=== PATIENT | male | born 1975 | race Caucasian/White ===

== ENCOUNTER 2016-08-02 16:24 | Emergency (ER) | payer MEDICAID, OTHER ==
[~2016-08-02] VITALS: Ht 175.3 cm; Wt 117.9 kg
[2016-08-02 16:35] VITALS: BP 143/88
--- NOTE | 2016-08-02 16:44 | NUR ---
PATIENT AMBULATED TO BED 6 AT THIS TIME.
--- NOTE | 2016-08-02 16:50 | NUR ---
PATIENT PRESENTS TO ED WITH LEFT KNEE PAIN X1 WEEK, DENIES INJURY OR FALLS . PT STATES HE HAS A HISTORY OF GOUT AND HTN . DENIES N/V/D; SKIN IS PINK/WARM/DRY; AAOX4 WITH EVEN AND STEADY GAIT; LUNGS CLEAR BL; HR EVEN AND REGULAR; PT DENIES ANY FEVER, CP, SOB, OR COUGH AT THIS TIME; PATIENT STATES PAIN OF 10/10 AT THIS TIME; VSS; PATIENT POSITIONED FOR COMFORT; HOB ELEVATED; BEDRAILS UP X2; BED DOWN. ER MD MADE AWARE OF PT STATUS.
[2016-08-02 17:45] VITALS: BP 146/97
[2016-12-02] MEDS ORDERED: ZYLOPRIM100 MG PO (16:39)
[2016-12-02] MEDS ORDERED: NAPROSYN500 MG PO (16:39)
[2016-12-02] MEDS ORDERED: COLCHICINE0.6 M3 PO (16:42)
[2016-12-02] MEDS ORDERED: LISINOPRIL20 M1 PO (16:42)
[2016-12-02] MEDS ORDERED: AMLODIPINE10 M1 PO (16:42)
== END 2016-08-02 17:45 | disposition home or self-care (01) ==
LOC: MED 16:24
DX: M25.562 Pain in left knee (principal); I10 Essential (primary) hypertension

== ENCOUNTER 2016-12-02 11:05 | Inpatient (IN) | payer OTHER ==
[~2016-12-02] VITALS: Ht 175.3 cm; Wt 114.8 kg
[2016-12-02 11:07] VITALS: BP 107/60
--- NOTE | 2016-12-02 11:55 | NUR ---
Patient ambulated to bed 5.
[2016-12-02 11:57] LABS: EOSINOPHILS # (AUTO) 0.2 K/uL (0-0.4); LYMPHOCYTES # (AUTO) 1.8 K/uL (2.0-11.5); WHITE BLOOD COUNT (AUTO) 7.5 K/uL (4.8-10.8)
--- NOTE | 2016-12-02 12:02 | NUR ---
PT C/O BODY ACHES AND DIZZINESS x YESTERDAY @1000 . DENIES N/V/D; SKIN IS PINK/WARM/DRY; AAOX4 WITH EVEN AND STEADY GAIT; LUNGS CLEAR BL; HR EVEN AND REGULAR; PT DENIES ANY FEVER, CP, SOB, OR COUGH AT THIS TIME; PATIENT STATES PAIN OF 6/10 AT THIS TIME; VSS; PATIENT POSITIONED FOR COMFORT; HOB ELEVATED; BEDRAILS UP X2; BED DOWN. ER MD MADE AWARE OF PT STATUS.
--- NOTE | 2016-12-02 12:19 | NUR ---
DR. SAWYER AT BEDSIDE TO CHECK PT.
[2016-12-02] MEDS ORDERED: KETOROLAC 60 MG/2 ML VIAL IM ONE (12:25)
[2016-12-02 12:32] LABS: BASOPHILS # (AUTO) 0.2 K/uL (0.00-0.22); BASOPHILS % (AUTO) 3.2 % (0.0-2.0); EOSINOPHILS % (AUTO) 2.8 % (0.0-4.0); HEMATOCRIT 46.8 % (36-52); HEMOGLOBIN 15.8 g/dL (12.0-18.0); LYMPHOCYTES % (AUTO) 23.9 % (20.5-51.1); MEAN CORPUSCULAR HEMOGLOBIN 31 pg (27-31); MEAN CORPUSCULAR HGB CONC 34 g/dL (33-37); MEAN CORPUSCULAR VOLUME 93 fL (80-94); MONOCYTES # (AUTO) 0.9 K/uL (0.8-1.0); MONOCYTES % (AUTO) 11.7 % (1.7-9.3); NEUTROPHILS # (AUTO) 4.4 K/uL (1.8-7.7); NEUTROPHILS % (AUTO) 58.4 % (42.2-75.2); PLATELET COUNT (AUTO) 254 K/uL (140-450); RED BLOOD CELL COUNT(AUTO) 5.04 MIL/uL (4.20-6.10); RED CELL DISTRIBUTION WIDTH 11.9 % (11.6-13.7)
[2016-12-02 12:43] LABS: ANION GAP 17.2 (8-16); CALCIUM 8.8 mg/dL (8.5-10.1); CARBON DIOXIDE 24.4 mmol/L (21-32); CREATININE 3.3 mg/dL (0.7-1.3); POTASSIUM 3.6 mmol/L (3.5-5.1)
--- NOTE | 2016-12-02 12:55 | NUR ---
Ultrasound at bedside.
[2016-12-02 13:02] LABS: ALBUMIN 4.3 g/dL (3.4-5.0); TOTAL PROTEIN, SERUM 8.9 g/dL (6.4-8.2)
--- NOTE | 2016-12-02 13:44 | NUR ---
PT RESTING IN BED. PT STATED HE FEELS MUCH BETTER AT THIS TIME.
[2016-12-02] MEDS ORDERED: NACL 0.9% 1,000 ML IV ONE ×2 (13:45→15:05)
--- NOTE | 2016-12-02 13:50 | NUR ---
PT LEFT FOR CT VIA WHEELCHAIR PER TECH.
--- NOTE | 2016-12-02 14:00 | NUR ---
PT BACK TO BED 5 VIA WHEELCHAIR PER TECH.
[2016-12-02 14:27] LABS: APPEARANCE,URINE CLEAR (CLEAR); BILIRUBIN,URINE 1+ (NEGATIVE); BLOOD, URINE NEGATIVE (NEGATIVE); LEUKOCYTE ESTERASE ,URINE NEGATIVE (NEGATIVE); NITRITE, URINE NEGATIVE (NEGATIVE); PROTEIN,URINE TRACE (NEGATIVE); UGLUCOSE NEGATIVE (NEGATIVE); UROBILINOGEN,URINE 0.2 EU/dL (0.2 - 1)
[2016-12-02 14:32] LABS: COLOR,URINE AMBER (YELLOW)
[2016-12-02 14:37] LABS: BACTERIA,URINE FEW /HPF (None Seen); RBC,URINE NONE SEEN /HPF (0-5); SQUAMOUS EPITHELIAL CELL,UR RARE /LPF (0-3 (FEW)); WBC,URINE 0-5 (RARE) /HPF (0-5)
[2016-12-02] MEDS: NACL 0.9% 1,000 ML IV SCH (15:18)
[2016-12-02] MEDS ORDERED: MORPHINE SULFATE 2 MG/ML SYR IVP PRN (15:20)
[2016-12-02] MEDS ORDERED: ACETAMINOPHEN 325 MG TAB PO PRN (15:20)
[2016-12-02] MEDS ORDERED: ONDANSETRON 4 MG/2 ML VIAL IVP PRN (15:20)
[2016-12-02] MEDS ORDERED: LORazepam 2 MG/ML VIAL IVP PRN (15:20)
--- NOTE | 2016-12-02 16:11 | NUR ---
REPORT GIVEN TO BECKY CURIEL.
--- NOTE | 2016-12-02 16:30 | NUR ---
RECEIVED PT FROM ER NURSES. PT IS ALERT AWAKE AND ORIENTED. AMBULATORY. PT HAS IV ON LEFT HAND 22 G RUNNING NS@100ML/HR. PT HAS MILD BACK PAIN, REFUSED PAIN MED FOR NOW, WILL REQUEST WHEN NEED PAIN MED. ORIENTED TO ROOM, PROVIDED WATER, SOCKS, CALL LIGHT WITHIN REACH. WILL CONTINUE TO MONITOR.
[2016-12-02] MEDS ORDERED: ALLO100T21 PO (16:39)
[2016-12-02] MEDS ORDERED: NAPR500T1 PO (16:39)
[2016-12-02] MEDS ORDERED: AMLO-27 PO (16:42)
[2016-12-02] MEDS ORDERED: LISI-420 PO (16:42)
[2016-12-02] MEDS ORDERED: COL.6 PO (16:42)
[2016-12-02 16:50] VITALS: BP 147/78
--- NOTE | 2016-12-02 17:00 | NUR ---
DR. BUI EXAMINED PT IN ROOM.
--- NOTE | 2016-12-02 18:21 | NUR ---
DROPPED OFF PT'S MONEY AND 2 ID CARDS AT ADMITTING. PT HAS RECEIPT AND VERBALIZED UNDERSTANDING TO BARREL HANDLER WHEN DISCHARGED.
[2016-12-02] MEDS ORDERED: LORazepam 1 MG TAB PO PRN (18:30)
--- NOTE | 2016-12-02 19:24 | NUR ---
ENDORSED CARE OF PT TO AIR CONTROL ELECTRONICS OPERATOR NURSE AT BEDSIDE. PT IN STABLE CONDITION.
--- NOTE | 2016-12-02 19:30 | NUR ---
RECEIVED FROM AM RN IN BED SITTING UP AWAKE AND ALERT. NO SOB. DENIES PAIN AT THIS TIME. ORIENTED. ABLE TO VERBALIZE NEEDS WELL. DX. OF ACUTE KIDNEY INJURY. CARE PLANS FOR THE NIGHT AND CALL LIGHT USE DISCUSSED WITH HIM. IVF TO LEFT HAND INTACT AND NO INFILTRATION.
[2016-12-02 20:00] VITALS: BP 117/60
--- NOTE | 2016-12-02 20:12 | NUR ---
PT. ENDORSED TO ANOTHER RN FOR CONTINUITY OF CARE RT CHANGE OF STATUS FROM MEDICAL SURGICAL PT. TO TELEMETRY . AWAKE AND ALERT. VERBALIZES NEEDS WELL. ROM X 4. CLEAR SPEECH. IVF SITE TO LEFT HAND INTACT AND NO INFILTRATION.
--- NOTE | 2016-12-02 20:15 | NUR ---
RECEIVED PT FROM BOB RN PT IS AAOX4 AMBULATORY IV ON LEFT ARM INFUSING WELL ON LEFT HAND, ON TELEMETRY SR INITIAL ASSESSMENT DONE
--- NOTE | 2016-12-02 23:38 | NUR ---
PT WATCHING TV DENIES ANY PAIN OR DISTRESS AAOX4 AMBULATORY ON TELEMETRY SR
[2016-12-03] VITALS: BP 122/59
--- NOTE | 2016-12-03 03:00 | NUR ---
PT REMAIN STABLE VOIDING WELL WALKING TO THE RESTROOM, ON TELMETRY SR
[2016-12-03 04:00] VITALS: BP 144/88
[2016-12-03] MEDS: NACL 0.9% 1,000 ML IV SCH ×2 (05:14→11:18)
--- NOTE | 2016-12-03 06:00 | NUR ---
PT AMBULATORY DENIES ANY PAIN WATCHING TV, ON TELEMETRY SR
[2016-12-03 06:51] LABS: BASOPHILS # (AUTO) 0.2 K/uL (0.00-0.22); BASOPHILS % (AUTO) 3.6 % (0.0-2.0); EOSINOPHILS # (AUTO) 0.2 K/uL (0-0.4); EOSINOPHILS % (AUTO) 4.8 % (0.0-4.0); HEMATOCRIT 40.8 % (36-52); HEMOGLOBIN 13.7 g/dL (12.0-18.0); LYMPHOCYTES # (AUTO) 1.9 K/uL (2.0-11.5); LYMPHOCYTES % (AUTO) 42.2 % (20.5-51.1); MEAN CORPUSCULAR HEMOGLOBIN 32 pg (27-31); MEAN CORPUSCULAR HGB CONC 34 g/dL (33-37); MEAN CORPUSCULAR VOLUME 95 fL (80-94); MONOCYTES # (AUTO) 0.6 K/uL (0.8-1.0); MONOCYTES % (AUTO) 12.6 % (1.7-9.3); NEUTROPHILS # (AUTO) 1.7 K/uL (1.8-7.7); NEUTROPHILS % (AUTO) 36.8 % (42.2-75.2); PLATELET COUNT (AUTO) 185 K/uL (140-450); RED BLOOD CELL COUNT(AUTO) 4.31 MIL/uL (4.20-6.10); RED CELL DISTRIBUTION WIDTH 12.1 % (11.6-13.7); WHITE BLOOD COUNT (AUTO) 4.6 K/uL (4.8-10.8)
--- NOTE | 2016-12-03 07:03 | NUR ---
PATIENT HAS BEEN SCREENED AND CATEGORIZED LOW NUTRITION RISK. PATIENT WILL BE SEEN WITHIN 7 DAYS OF ADMISSION. 12/10/15 GLEN WYLIE MS, RDN
--- NOTE | 2016-12-03 07:07 | NUR ---
RECEIVED REPORT FROM NIGHT RN. PT AMBULATING FROM BATHROOM. NO S/S OF ACUTE DISTRESS. PT DENIES PAIN. IV SITE PATENT AND INTACT. PT DENIES ANY DISCOMFORT OR ABNORMALITIES WHEN URINATING. CALL LIGHT WITHIN REACH. SAFETY MEASURES ENSURED. WILL CONTINUE TO MONITOR.
[2016-12-03 07:48] VITALS: BP 145/85
[2016-12-03 07:49] LABS: MAGNESIUM 1.9 mg/dL (1.8-2.4); PHOSPHORUS 2.9 mg/dL (2.5-4.9)
--- NOTE | 2016-12-03 08:19 | NUR ---
AM MEDICATION GIVEN WITH EDUCATION. PT VERBALIZED UNDERSTANDING. PT TOLERATED WELL. NO S/S OF ACUTE DISTRESS. PT DENIES PAIN. CALL LIGHT WITHIN REACH. SAFETY MEASURES ENSURED. WILL CONTINUE TO MONITOR.
[2016-12-03 08:32] LABS: CALCIUM 8.5 mg/dL (8.5-10.1); CARBON DIOXIDE 24.8 mmol/L (21-32); CREATININE 1.1 mg/dL (0.7-1.3); POTASSIUM 3.8 mmol/L (3.5-5.1)
[2016-12-03] MEDS ORDERED: FOLIC ACID 1 MG TAB PO SCH (09:00)
[2016-12-03] MEDS ORDERED: THIAMINE 100 MG TAB PO SCH (09:00)
[2016-12-03 12:00] VITALS: BP 147/95
--- NOTE | 2016-12-03 12:08 | NUR ---
PT RESTING IN BED. NO S/S OF ACUTE DISTRESS. PT DENIES PAIN. CALL LIGHT WITHIN REACH. SAFETY MEASURES ENSURED. WILL CONTINUE TO MONITOR.
--- NOTE | 2016-12-03 12:54 | NUR ---
DR. MEJIA IN TO SEE PT.
[2016-12-03 13:31] VITALS: BP 147/95
--- NOTE | 2016-12-03 14:00 | NUR ---
PT CLEARED FOR DISCHARGE. DISCHARGE INSTRUCTIONS PROVIDED. PT VERBALIZED UNDERSTANDING. IV TAKEN OUT, TIP INTACT. NO S/S OF ACUTE DISTRESS. PT DENIES PAIN. PT TAKEN OFF UNIT.
--- NOTE | 2016-12-05 08:24 | NUR ---
RETRO ER REPORT, H&P, CONSULT AND DISCHARGE SUMMARY FAXED TO [facility] [phone] PHONE OCTOBER [phone]
== END 2016-12-03 14:04 | disposition home or self-care (01) | DRG 469 ==
LOC: MED 11:05 → MTU 15:28
PROVIDERS: ADMIT Hospitalist; ATTEND Hospitalist
DX: N17.9 Acute kidney failure, unspecified (principal); E87.2 Acidosis; I12.9 Hypertensive chronic kidney disease with stage 1 through stage 4 chronic kidney disease, or unspecified chronic kidney disease; F10.20 Alcohol dependence, uncomplicated; N18.9 Chronic kidney disease, unspecified; Y90.9 Presence of alcohol in blood, level not specified; E66.9 Obesity, unspecified; M54.5 Low back pain; T39.315A Adverse effect of propionic acid derivatives, initial encounter; R74.0 Nonspecific elevation of levels of transaminase and lactic acid dehydrogenase [LDH]; G89.4 Chronic pain syndrome; M10.9 Gout, unspecified; M79.651 Pain in right thigh; M79.652 Pain in left thigh; Z83.3 Family history of diabetes mellitus; Z83.49 Family history of other endocrine, nutritional and metabolic diseases; Z79.1 Long term (current) use of non-steroidal anti-inflammatories (NSAID); Z82.49 Family history of ischemic heart disease and other diseases of the circulatory system; Z87.81 Personal history of (healed) traumatic fracture; Z68.37 Body mass index [BMI] 37.0-37.9, adult; Y92.89 Other specified places as the place of occurrence of the external cause
CPT/HCPCS: 36415; 76770; 80048; 80053; 81001; 83735; 84100; 84484; 85025; 87081; 87804; 93005; 96360; 96372; 99285; J1644; J1885; J2270; J7030; Q0092

== ENCOUNTER 2017-08-03 18:54 | Emergency (ER) | payer OTHER ==
[~2017-08-03] VITALS: Ht 175.3 cm; Wt 127.5 kg
[~2017-08-03 18:54] MED LIST: ALLO100T21 PO; AMLO-27 PO; COL.6 PO; LISI-420 PO
[2017-08-03 18:57] VITALS: BP 159/101
--- NOTE | 2017-08-03 18:59 | NUR ---
PT AWAKE, ALERT, ACTING APPROPRIATE FOR AGE; RR EVEN/UNLABORED; STATES NO DIFFICULTIES BREATHING AT THIS TIME; PT TO LOBBY AWAITING OPEN BED.
--- NOTE | 2017-08-03 19:59 | NUR ---
42M BIB GF C/O HIVES " ALL OVER" X 6-7 MONTHS; PT STATES NO DIFFICULTY BREATHING, NO SHORTNESS OF BREATH AT THIS TIME; RR EVEN/UNLABORED AT THIS TIME; PT STATES " I'M NOT ALLERGIC TO ANYTHING THAT I KNOW OF" HX: HTN, GOUT
--- NOTE | 2017-08-03 20:20 | NUR ---
Patient being evaluated by physician at bedside.
[2017-08-03] MEDS ORDERED: DEXAMETHASONE 10 MG/ML VIAL IM ONE (20:35)
[2017-08-03] MEDS ORDERED: diphenhydrAMINE 50 MG/ML VIAL IM ONE (20:35)
--- NOTE | 2017-08-03 21:07 | NUR ---
Patient discharged with v/s stable. Written and verbal after care instructions given and explained. Patient alert, oriented and verbalized understanding of instructions. Ambulatory with steady gait. All questions addressed prior to discharge. ID band removed. Patient advised to follow up with PMD. Rx of BENADRYL 25MG, PEPCID 20MG, PREDNISONE 50MG given. Patient educated on indication of medication including possible reaction and side effects. Opportunity to ask questions provided and answered.
[2017-08-03 21:08] VITALS: BP 146/95
== END 2017-08-03 21:08 | disposition home or self-care (01) ==
LOC: MED 18:54
DX: L50.0 Allergic urticaria (principal); I10 Essential (primary) hypertension
CPT/HCPCS: 96372; 99284; J1100; J1200

== ENCOUNTER 2017-09-30 07:25 | Emergency (ER) | payer OTHER ==
[~2017-09-30] VITALS: Ht 175.3 cm; Wt 124.3 kg
[2017-09-30 07:27] VITALS: BP 160/103
--- NOTE | 2017-09-30 07:30 | NUR ---
Pt taken to bed 9.
--- NOTE | 2017-09-30 07:39 | NUR ---
42 YO M BIB SELF W/ C/O BODY ACHES 4/10 X 3-4 DAYS, PRODUCTIVE COUGH X 1 MONTH, FEVERISH, SORE THROAT. PT A&O X 4. GCS 15. CMS INTACT. AMBULATORY W/ STEADY GAIT. RR EVEN AND UNLABORED. LUNGS BILAT CLEAR AT THIS TIME. ABD SOFT, NON-TENDER. ER MD SECHRIST NOTIFIED OF PT STATUS. PT NEEDS MET. SAFETY PRECAUTIONS IN PLACE. WILL CONTINUE TO MONITOR.
--- NOTE | 2017-09-30 08:00 | NUR ---
XRAY AT BEDSIDE AT THIS TIME.
[2017-09-30 08:17] VITALS: BP 160/103
--- NOTE | 2017-09-30 08:17 | NUR ---
Patient discharged with v/s stable. Written and verbal after care instructions given and explained. Patient alert, oriented and verbalized understanding of instructions. Ambulatory with steady gait. All questions addressed prior to discharge. ID band removed. Patient advised to follow up with PMD. Rx of Azithromycin and Codeine Phosphate/Promethazine Hydrochloride given. Patient educated on indication of medication including possible reaction and side effects. Opportunity to ask questions provided and answered.
== END 2017-09-30 08:17 | disposition home or self-care (01) ==
LOC: MED 07:25
DX: J40 Bronchitis, not specified as acute or chronic (principal); I10 Essential (primary) hypertension; Z98.890 Other specified postprocedural states
CPT/HCPCS: 71045; 99283; Q0092

== ENCOUNTER 2018-08-04 07:43 | Emergency (ER) | payer OTHER ==
[~2018-08-04] VITALS: Ht 175.3 cm; Wt 95.3 kg
[~2018-08-04 07:43] MED LIST changes: -AMLO-27 PO; +AMLO10TA4 PO
[2018-08-04 07:45] VITALS: BP 153/106
--- NOTE | 2018-08-04 07:49 | NUR ---
PATIENT AMBULATED TO BED 3 AT THIS TIME.
[2018-08-04] MEDS ORDERED: cefTRIAXone 1,000 MG in LIDOCAINE 1% ***ER ONLY *** 2.1 ML IM ONE (07:55)
[2018-08-04] MEDS ORDERED: NEOMYCIN/POLYMYXIN/BACITRACIN 0.9 GM/1 PKT TP ONE (07:55)
[2018-08-04] MEDS: NEOMYCIN/POLYMYXIN/BACITRACIN 0.9 GM/1 PKT TP ONE ×2 (07:55→09:15)
[2018-08-04] MEDS ORDERED: LIDOCAINE 1% 500 MG/50 ML VIAL INJ ONE ×2 (07:55)
[2018-08-04] MEDS ORDERED: KETOROLAC 60 MG/2 ML VIAL IM ONE (07:55)
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
[2018-08-04] MEDS ORDERED: LIDOCAINE/EPI 1% 1:100000 20 ML VIAL INJ ONE (08:13)
[2018-08-04] MEDS ORDERED: cefTRIAXone 1,000 MG VIAL ONE (08:13)
[2018-08-04] MEDS ORDERED: LIDOCAINE MPF 1% 5mL VIAL ONE (08:21)
--- NOTE | 2018-08-04 08:40 | NUR ---
SUTURE TO RIGHT FOREHEAD DONE. PATIENT TOLERATED PROCEDURE WELL.
--- NOTE | 2018-08-04 09:12 | NUR ---
PATIENT WAS TAKEN TO CT VIA WHEELCHAIR BY CIVIL ENGINEERING MANAGER
--- NOTE | 2018-08-04 09:23 | NUR ---
PATIENT RETURNED FROM CT.
--- NOTE | 2018-08-04 09:36 | NUR ---
Patient being reevaluated by Dr Hicks at bedside.
[2018-08-04 10:33] VITALS: BP 122/78
--- NOTE | 2018-08-04 10:34 | NUR ---
Patient discharged with v/s stable. Written and verbal after care instructions given and explained. Patient alert, oriented and verbalized understanding of instructions. Ambulatory with steady gait. All questions addressed prior to discharge. ID band removed. Patient advised to follow up with PMD. Rx of MOTRIN,KEFLEX,BACTROBAN given. Patient educated on indication of medication including possible reaction and side effects. Opportunity to ask questions provided and answered.
== END 2018-08-04 10:34 | disposition home or self-care (01) ==
LOC: MED 07:43
DX: S01.81XA Laceration without foreign body of other part of head, initial encounter (principal); S00.531A Contusion of lip, initial encounter; F10.129 Alcohol abuse with intoxication, unspecified; I10 Essential (primary) hypertension; E66.9 Obesity, unspecified; Z68.31 Body mass index [BMI] 31.0-31.9, adult; Z79.899 Other long term (current) drug therapy; W01.0XXA Fall on same level from slipping, tripping and stumbling without subsequent striking against object, initial encounter; Y93.89 Activity, other specified; Y92.89 Other specified places as the place of occurrence of the external cause; Y99.8 Other external cause status
CPT/HCPCS: 12015; 70450; 70486; 90471; 90715; 96372; 99284; J0696; J1885; J2001

== ENCOUNTER 2018-11-20 12:29 | Emergency (ER) | payer OTHER ==
[~2018-11-20] VITALS: Ht 175.3 cm; Wt 115.0 kg
[2018-11-20 12:39] VITALS: BP 175/110
--- NOTE | 2018-11-20 12:47 | NUR ---
pt to er bed 4 via w/c
[2018-11-20] MEDS ORDERED: KETOROLAC 60 MG/2 ML VIAL IM ONE (12:55)
[2018-11-20] MEDS ORDERED: DEXAMETHASONE 10 MG/ML VIAL IM ONE (12:55)
--- NOTE | 2018-11-20 13:38 | NUR ---
PT BIB SELF FOR LEFT FOOT PAIN STARTING THIS MORNING AT WORK. DENIES TRAUMA TO FOOT, NO REDNESS, SWELLING, OR OPEN SKIN NOTED. +CMS. PT STATES HE HAS GOUT AND ADMITS TO DRINKING RECENTLY BUT IS COMPLIANT WITH MEDICATIONS. PT AWAKE AND ALERT.
--- NOTE | 2018-11-20 14:25 | NUR ---
Patient appears to be resting comfortably in bed. Vital Signs within normal limits. Respirations even and unlabored.
[2018-11-20] MEDS ORDERED: COLCHICINE 0.6 MG TAB PO ONE (14:30)
--- NOTE | 2018-11-20 14:55 | NUR ---
PHARMACY TO BRING MEDICATION NOT AVAILABLE IN ER PYXIS.
[2018-11-20 15:50] VITALS: BP 155/82
--- NOTE | 2018-11-20 15:50 | NUR ---
Patient discharged with v/s stable. Written and verbal after care instructions given and explained. Patient alert, oriented and verbalized understanding of instructions. Ambulatory with steady gait. All questions addressed prior to discharge. ID band removed. Patient advised to follow up with PMD. Rx of Voltaren tab given. Patient educated on indication of medication including possible reaction and side effects. Opportunity to ask questions provided and answered.
== END 2018-11-20 15:50 | disposition home or self-care (01) ==
LOC: MED 12:29
DX: M10.9 Gout, unspecified (principal); I10 Essential (primary) hypertension; Z79.899 Other long term (current) drug therapy
CPT/HCPCS: 96372; 99283; J1100; J1885

== ENCOUNTER 2020-04-27 10:00 | Emergency (ER) | payer OTHER ==
[~2020-04-27] VITALS: Ht 177.8 cm; Wt 108.9 kg
[~2020-04-27 10:00] MED LIST changes: -AMLO10TA4 PO; +AMLO10TA89 PO; -COL.6 PO; +COLC-30 PO
[2020-04-27 10:14] VITALS: BP 160/104
--- NOTE | 2020-04-27 10:14 | NUR ---
PT C/O PRODUCTIVE COUGH WITH GREENISH PHLEGM FOR 1 WEEK, SOB, CHILLS, SUBJECTIVE FEVER FOR ONE DAY. REPORTS MIGHT HAVE EXPOSED TO SOMEONE HAS POSITIVE COVID AT WORK. PMH: GOUT, HTN MEDS: AMLODIPINE, ALLOPURINOL
--- NOTE | 2020-04-27 12:03 | NUR ---
covid swab collected and sent to the tent.
[2020-04-27 13:12] VITALS: BP 145/91
--- NOTE | 2020-04-27 13:12 | NUR ---
Patient discharged with v/s stable. Written and verbal after care instructions given and explained. Patient alert, oriented and verbalized understanding of instructions. Ambulatory with steady gait. All questions addressed prior to discharge. ID band removed. Patient advised to follow up with PMD. Rx of Azithromycin, Vit D, Zinc, and Hydroxychloroquine given. Patient educated on indication of medication including possible reaction and side effects. Opportunity to ask questions provided and answered.
== END 2020-04-27 13:12 | disposition home or self-care (01) ==
LOC: MED 10:00
DX: U07.1 COVID-19 (principal); I10 Essential (primary) hypertension; Z79.899 Other long term (current) drug therapy
CPT/HCPCS: 71045; 99284

== ENCOUNTER 2021-02-05 12:13 | Emergency (ER) | payer OTHER ==
[~2021-02-05] VITALS: Ht 175.3 cm; Wt 117.9 kg
[~2021-02-05 12:13] MED LIST changes: -LISI-420 PO; +LISI20TA29 PO
[2021-02-05 12:29] VITALS: BP 181/118
[2021-02-05] MEDS ORDERED: NACL 0.9% 1,000 ML IV ONE (12:40)
--- NOTE | 2021-02-05 12:40 | NUR ---
BOIB SELF C/O CONSTANT MID BACK PAIN & INTERMITENT LEFT CHEST PAIN,LAWSON,N/V/D X 3DAYS. BP 181/118 AT THIS TIME. PMH: HTN, GOUT
[2021-02-05] MEDS ORDERED: KETOROLAC 30 MG/ML VIAL IVP ONE (13:40)
[2021-02-05] MEDS ORDERED: ONDANSETRON 4 MG/2 ML VIAL IVP ONE (13:40)
[2021-02-05] MEDS ORDERED: OMEP40EC24 PO (13:55)
[2021-02-05] MEDS ORDERED: ACET-8386 PO (13:55)
[2021-02-05] MEDS ORDERED: ONDA8TAB87 PO (13:55)
[2021-02-05] MEDS ORDERED: IBUP-2213 PO (13:55)
--- NOTE | 2021-02-05 14:07 | NUR ---
IV 2OGA RT A/C DONE, IVP/IVF MEDS GIVEN-NADR THIS TIME
[2021-02-05 14:56] VITALS: BP 154/99
--- NOTE | 2021-02-05 14:57 | NUR ---
Patient discharged with v/s stable. Written and verbal after care instructions given and explained. Patient alert, oriented and verbalized understanding of instructions. Ambulatory with steady gait. All questions addressed prior to discharge. ID band removed. Patient advised to follow up with PMD. Rx of zofran, omeprazole, ibuprofen, and hydrocodone/acetaminophen given. Patient educated on indication of medication including possible reaction and side effects. Opportunity to ask questions provided and answered.
== END 2021-02-05 14:57 | disposition home or self-care (01) ==
LOC: MED 12:13
DX: M54.5 Low back pain (principal); R07.9 Chest pain, unspecified; R11.2 Nausea with vomiting, unspecified; R19.7 Diarrhea, unspecified; I10 Essential (primary) hypertension; Z98.890 Other specified postprocedural states; Z79.899 Other long term (current) drug therapy
CPT/HCPCS: 71045; 96361; 96374; 96375; 99284; J1885; J2405; J7030; 93005

== ENCOUNTER 2022-01-28 09:57 | Emergency (ER) | payer OTHER ==
[~2022-01-28] VITALS: Ht 175.3 cm; Wt 111.1 kg
[~2022-01-28 09:57] MED LIST changes: +ACET-8386 PO; +IBUP-2213 PO; +OMEP40EC24 PO; +ONDA8TAB87 PO
--- NOTE | 2022-01-28 10:16 | NUR ---
pt ambulated to bed 12 at this time
[2022-01-28 10:24] VITALS: BP 107/64
--- NOTE | 2022-01-28 10:32 | NUR ---
46 y/o male bib self from home, pt presents to ed with c/o feeling dizzy, diarrhea, back spasms, and body aches since yesterday. pt states he has also been having tingling/numbness sensation on his left hand 4th and 5th digits. site does not appear inflammed, swollen or any visible deformities. pt denies loc or syncope. a&ox4, ambulates with steady gait. denies sob, cough, chills, fever, cp. pmh: htn nka med: aspirin
[2022-01-28] MEDS ORDERED: NACL 0.9% 1,000 ML IV ONE ×2 (11:15→12:45)
[2022-01-28] MEDS ORDERED: LIDOCAINE 5% 1 EA PATCH TP SCH (11:15)
[2022-01-28] MEDS ORDERED: KETOROLAC 30 MG/ML VIAL IVP ONE (11:15)
[2022-01-28] MEDS ORDERED: methocarbamoL 500 MG TAB PO ONE (11:15)
[2022-01-28 11:51] LABS: BASOPHILS # (AUTO) 0.1 K/uL (0.00-0.22); BASOPHILS % (AUTO) 0.9 % (0.0-2.0); EOSINOPHILS # (AUTO) 0.2 K/uL (0-0.4); EOSINOPHILS % (AUTO) 2.8 % (0.0-4.0); HEMATOCRIT 44.6 % (36-52); HEMOGLOBIN 15.6 g/dL (12.0-18.0); LYMPHOCYTES # (AUTO) 1.8 K/uL (2.0-11.5); LYMPHOCYTES % (AUTO) 22.5 % (20.5-51.1); MEAN CORPUSCULAR HEMOGLOBIN 34 pg (27-31); MEAN CORPUSCULAR HGB CONC 35 g/dL (33-37); MONOCYTES # (AUTO) 0.9 K/uL (0.8-1.0); MONOCYTES % (AUTO) 11.3 % (1.7-9.3); NEUTROPHILS # (AUTO) 4.9 K/uL (1.8-7.7); NEUTROPHILS % (AUTO) 62.5 % (42.2-75.2); PLATELET COUNT (AUTO) 262 K/uL (140-450); RED BLOOD CELL COUNT(AUTO) 4.55 MIL/uL (4.20-6.10); WHITE BLOOD COUNT (AUTO) 7.8 K/uL (4.8-10.8)
[2022-01-28 12:36] LABS: ALBUMIN 4.1 g/dL (3.4-5.0); ANION GAP 17.2 (8-16); ASPARTATE AMINOTRANSFERASE 33 U/L (15-37); CARBON DIOXIDE 23.5 mmol/L (21-32); CHLORIDE 94 mmol/L (98-107); CREATININE 3.5 mg/dL (0.6-1.3); GFR ARICAN-AMERICAN 24 mL/min (>90); GLUCOSE 102 mg/dL (74-106); LIPASE 116 U/L (73-393); POTASSIUM 3.7 mmol/L (3.5-5.1); SODIUM SERUM 131 mmol/L (136-145); UREA NITROGEN, BLOOD 45 mg/dL (7-18)
--- NOTE | 2022-01-28 13:41 | NUR ---
COVID SWAB SENT TO LAB
[2022-01-28 13:58] LABS: BILIRUBIN,URINE 2+ (NEGATIVE); BLOOD, URINE NEGATIVE (NEGATIVE); LEUKOCYTE ESTERASE ,URINE NEGATIVE (NEGATIVE); NITRITE, URINE NEGATIVE (NEGATIVE); PH,URINE 5.5 (5.0-9.0); UGLUCOSE NEGATIVE (NEGATIVE)
[2022-01-28 14:51] LABS: APPEARANCE,URINE CLEAR (CLEAR)
[2022-01-28 15:14] LABS: COLOR,URINE YELLOW (YELLOW)
--- NOTE | 2022-01-28 15:20 | NUR ---
Patient discharged with v/s stable. Written and verbal after care instructions given and explained. Patient verbalized understanding. Ambulatory with steady gait. All questions addressed prior to discharge. Advised to follow up with PMD.
[2022-01-28 15:21] VITALS: BP 130/79
== END 2022-01-28 14:57 | disposition home or self-care (01) ==
LOC: MED 09:57
DX: N17.9 Acute kidney failure, unspecified (principal); Z20.822 Contact with and (suspected) exposure to COVID-19; M62.838 Other muscle spasm; I10 Essential (primary) hypertension; Z79.899 Other long term (current) drug therapy
CPT/HCPCS: 36415; 71045; 76770; 80053; 81003; 83690; 84484; 85025; 87426; 93005; 96361; 96374; 99285; J1885; Q0092; 81002

== ENCOUNTER 2022-01-28 19:49 | Emergency (ER) | payer OTHER ==
[~2022-01-28] VITALS: Ht 175.3 cm; Wt 113.9 kg
[2022-01-28 20:03] VITALS: BP 131/70
--- NOTE | 2022-01-28 20:07 | NUR ---
pt to lobby
[2022-01-28 20:27] LABS: BASOPHILS # (AUTO) 0.1 K/uL (0.00-0.22); BASOPHILS % (AUTO) 0.9 % (0.0-2.0); EOSINOPHILS # (AUTO) 0.2 K/uL (0-0.4); EOSINOPHILS % (AUTO) 4.2 % (0.0-4.0); HEMATOCRIT 40.4 % (36-52); LYMPHOCYTES # (AUTO) 1.8 K/uL (2.0-11.5); LYMPHOCYTES % (AUTO) 29.9 % (20.5-51.1); MEAN CORPUSCULAR HEMOGLOBIN 34 pg (27-31); MEAN CORPUSCULAR HGB CONC 35 g/dL (33-37); MONOCYTES # (AUTO) 0.7 K/uL (0.8-1.0); MONOCYTES % (AUTO) 11.4 % (1.7-9.3); NEUTROPHILS # (AUTO) 3.2 K/uL (1.8-7.7); NEUTROPHILS % (AUTO) 53.6 % (42.2-75.2); PLATELET COUNT (AUTO) 221 K/uL (140-450); RED BLOOD CELL COUNT(AUTO) 4.12 MIL/uL (4.20-6.10); RED CELL DISTRIBUTION WIDTH 13.4 % (11.6-13.7)
[2022-01-28 20:46] LABS: ANION GAP 14.8 (8-16); CARBON DIOXIDE 22.8 mmol/L (21-32); POTASSIUM 3.6 mmol/L (3.5-5.1)
--- NOTE | 2022-01-28 21:38 | NUR ---
ERMD EXAMINING PT
--- NOTE | 2022-01-28 21:46 | NUR ---
PT TAKEN TO BED 05
--- NOTE | 2022-01-28 22:00 | NUR ---
46/M BIB SELF C/C ABNORMAL LABS. PER PATIENT HE WAS HERE EARLILER TODAY AND AND THEY TOLD HIM HE HAD ABNORMAL LABS OF KIDNEYS. PATIENT LEFT EARLIER AND DENIED ADMISSION. MD AWARE. PATIENT IS AAOX4 AND AMBULATORY. RR EVEN AND UNLABORED. BED LOW AND LOCKED. ALL NEEDS MET. PMHX GOUT, HTN RX SEE MED REC NKA
[2022-01-28] MEDS ORDERED: NACL 0.9% 2,000 ML IV ONE (22:15)
--- NOTE | 2022-01-28 22:26 | NUR ---
PATIENT IVF STARTED PER ORDERS. TOLERATED WELL
--- NOTE | 2022-01-28 23:14 | NUR ---
RAD AT BEDSIDE
--- NOTE | 2022-01-28 23:15 | NUR ---
PATIENT AMBULATED TO AND BACK TO BED
[2022-01-29] MEDS ORDERED: NACL 0.9% 1,000 ML IV ONE (00:15)
[2022-01-29 00:49] LABS: CARBON DIOXIDE 24.5 mmol/L (21-32); CREATININE 1.5 mg/dL (0.6-1.3); POTASSIUM 3.5 mmol/L (3.5-5.1)
--- NOTE | 2022-01-29 01:45 | NUR ---
PATIENT AMBULATED TO RR
[2022-01-29 02:01] LABS: APPEARANCE,URINE CLEAR (CLEAR); BILIRUBIN,URINE NEGATIVE (NEGATIVE); BLOOD, URINE NEGATIVE (NEGATIVE); COLOR,URINE YELLOW (YELLOW); LEUKOCYTE ESTERASE ,URINE NEGATIVE (NEGATIVE); NITRITE, URINE NEGATIVE (NEGATIVE); UGLUCOSE NEGATIVE (NEGATIVE)
--- NOTE | 2022-01-29 03:35 | NUR ---
IV removed, catheter intact and site benign. Applied folded 4x4 gauze and tape to stop bleeding.
--- NOTE | 2022-01-29 03:38 | NUR ---
Reji thomas in ED - 01/29/22 at 0346 by LOBO PATIENT C/O FACIAL PAIN 01/05. MD MEREDITH.
--- NOTE | 2022-01-29 03:38 | NUR ---
Patient discharged with v/s stable. Written and verbal after care instructions given ACUTE KIDNEY INJURY and explained. Patient verbalized understanding. Ambulatory with steady gait. Advised to follow up with PMD.
[2022-01-29 03:39] VITALS: BP 134/69
--- NOTE | 2022-01-29 03:40 | NUR ---
The patient's care was reviewed and supervised by Eliza Sanchez RN, RN.
== END 2022-01-29 03:39 | disposition home or self-care (01) ==
LOC: MED 19:49
DX: N17.9 Acute kidney failure, unspecified (principal); I10 Essential (primary) hypertension; Z79.899 Other long term (current) drug therapy
CPT/HCPCS: 36415; 80048; 81003; 84484; 85025; 93005; 96360; 96361; 99284; J7030

== ENCOUNTER 2022-04-29 10:30 | Emergency (ER) | payer OTHER ==
[~2022-04-29] VITALS: Ht 175.3 cm; Wt 114.8 kg
[2022-04-29 11:00] VITALS: BP 158/115
--- NOTE | 2022-04-29 11:08 | NUR ---
Pt W/C assisted to lobby.
[2022-04-29] MEDS ORDERED: ACET-8386 PO ×3 (12:35→13:29)
[2022-04-29] MEDS ORDERED: INDO-304 PO ×2 (12:35→12:38)
--- NOTE | 2022-04-29 13:03 | NUR ---
PT DISCHARGED BY DR WATSON. Written and verbal after care instructions ABOUT LOW-PURINE EATING PLAN AND CALCIUM PUROPHOSPHATE DEPOSITION given and explained. Patient alert, oriented and verbalized understanding of instructions. Ambulatory with steady gait. All questions addressed prior to discharge. ID band removed. Patient advised to follow up with PMD. Rx of NORCO 5-325MG AND INDOMETHACIN given. Patient educated on indication of medication including possible reaction and side effects. Opportunity to ask questions provided and answered.
[2022-04-29] MEDS ORDERED: INDO-305 PO (13:29)
== END 2022-04-29 13:03 | disposition home or self-care (01) ==
LOC: MED 10:30
DX: M10.9 Gout, unspecified (principal)
CPT/HCPCS: 99283

== ENCOUNTER 2023-09-27 21:08 | Emergency (ER) | payer OTHER ==
[~2023-09-27] VITALS: Ht 175.3 cm; Wt 136.1 kg
[~2023-09-27 21:08] MED LIST changes: -ACET-8386 PO; +ACET-8905 PO; +INDO-304 PO; +INDO-305 PO
[2023-09-27 21:24] VITALS: BP 152/72; PULSE 92; RESP 16; TEMP 97.5; O2SAT 97
[2023-09-27] MEDS: cephALEXin 500 MG CAP PO ONE (21:48)
[2023-09-27] MEDS ORDERED: CEPH-588 PO (21:52)
[2023-09-27] MEDS ORDERED: BACO TP (21:52)
[2023-09-27 21:59] VITALS: BP 152/72; PULSE 92; RESP 16; TEMP 97.5; O2SAT 97
== END 2023-09-27 21:59 | disposition home or self-care (01) ==
LOC: MED 21:08
DX: T21.12XA Burn of first degree of abdominal wall, initial encounter (principal); L03.311 Cellulitis of abdominal wall; T31.0 Burns involving less than 10% of body surface; I10 Essential (primary) hypertension; R51.9 Headache, unspecified; Z79.899 Other long term (current) drug therapy; X08.8XXA Exposure to other specified smoke, fire and flames, initial encounter; Y93.89 Activity, other specified; Y92.89 Other specified places as the place of occurrence of the external cause; Y99.8 Other external cause status
CPT/HCPCS: 99283

== ENCOUNTER 2023-09-29 10:07 | Emergency (ER) | payer OTHER ==
[~2023-09-29] VITALS: Ht 175.3 cm; Wt 136.1 kg
[~2023-09-29 10:07] MED LIST changes: +BACO TP; +CEPH-588 PO
[2023-09-29 10:23] VITALS: BP 153/109; PULSE 88; RESP 19; TEMP 98.3; O2SAT 99
[2023-09-29 11:22] VITALS: BP 138/92; PULSE 84; RESP 18; TEMP 98.3; O2SAT 97
== END 2023-09-29 11:22 | disposition home or self-care (01) ==
LOC: MED 10:07
DX: T21.22XD Burn of second degree of abdominal wall, subsequent encounter (principal); Z48.00 Encounter for change or removal of nonsurgical wound dressing; I10 Essential (primary) hypertension; Z79.1 Long term (current) use of non-steroidal anti-inflammatories (NSAID); Z79.899 Other long term (current) drug therapy; X10.2XXD Contact with fats and cooking oils, subsequent encounter
CPT/HCPCS: 99281

== ENCOUNTER 2024-01-01 20:25 | Emergency (ER) | payer OTHER ==
[~2024-01-01] VITALS: Ht 180.3 cm; Wt 136.1 kg
[2024-01-01 20:30] VITALS: BP 163/91; PULSE 78; RESP 18; TEMP 98.1; O2SAT 98
[2024-01-01 22:39] VITALS: BP 163/91; PULSE 78; RESP 18; TEMP 98.1; O2SAT 98
== END 2024-01-01 22:39 | disposition home or self-care (01) ==
LOC: MED 20:25
DX: F10.129 Alcohol abuse with intoxication, unspecified (principal); E11.9 Type 2 diabetes mellitus without complications; I10 Essential (primary) hypertension; Z79.1 Long term (current) use of non-steroidal anti-inflammatories (NSAID); Z79.2 Long term (current) use of antibiotics; Z79.899 Other long term (current) drug therapy; Y90.9 Presence of alcohol in blood, level not specified
CPT/HCPCS: 99283